=== PATIENT | male | born 1965 | race Caucasian/White ===

== ENCOUNTER 2021-04-18 13:09 | Emergency (ER) | payer OTHER ==
[~2021-04-18] VITALS: Ht 170.2 cm; Wt 80.0 kg
[2021-04-18 13:12] VITALS: BP 140/99
[2021-04-18] MEDS ORDERED: CLONIDINE 0.1MG TABLET PO ONE (15:00)
== END 2021-04-18 18:37 | disposition home or self-care (01) ==
LOC: ER 14:26
DX: R07.9 Chest pain, unspecified (principal); I10 Essential (primary) hypertension; E78.00 Pure hypercholesterolemia, unspecified
CPT/HCPCS: 36415; 84484; 93005; 99284